=== PATIENT | female | born 1960 | race Caucasian/White ===

== ENCOUNTER → 2018-03-05 | Outpatient (CLI) | payer OTHER ==
--- NOTE | 2018-03-05 12:49 | XCELERA REPORT ---
[address] [address] Lower Extremity Venous Evaluation Name: MARIELLE EMMANUEL Age: 57 yrs Gender: Female : 1960 Patient Status: Outpatient Patient Location: Study Date: 03/05/2018 10:36 AM Procedure: Color flow and duplex imaging of the veins of the right lower extremity as well as the left Common Femoral vein. Reason For Study: RLE ACUTE EMBOLI Ordering Physician: MARK CASTAÑEDA Performed By: Dwight Call Right Sided Venous Evaluation Normal vessel filling wall to wall, compression and augmentation as well as Colour flow down to the infrageniculate veins. Left Sided Venous Evaluation The left common femoral vein is fully compressible. Spontaneous and phasic flow is present in the left common femoral vein. Interpretation Summary No duplex evidence of DVT or obstruction in the right lower extremity nor in the left Common Femoral vein. : MARK CASTAÑEDA > Brandon Thomas
== END ==
LOC: SP 10:21
PROVIDERS: ATTEND Podiatrist Foot & Ankle Surgery
DX: I82.401 Acute embolism and thrombosis of unspecified deep veins of right lower extremity (principal)
CPT/HCPCS: 93971